=== PATIENT | female | born 1955 | race Two or more races ===

== ENCOUNTER 2017-09-07 09:57 | Outpatient (CLI) | payer OTHER ==
[~2017-09-07 09:57] MED LIST: CELEBREX100 MG PO; FLOVENT 110MCG7.9 GM IH; PROVENTIL3 ML/2.5 M IH; TESSALON200 MG PO
== END 2017-09-07 10:44 | disposition home or self-care (01) ==
LOC: RAD 501 09:57
DX: H57.11 Ocular pain, right eye (principal)